=== PATIENT | male | born 1990 | race Two or more races ===

== ENCOUNTER 2017-09-21 11:31 | Inpatient (IN) | payer MEDICAID ==
[~2017-09-21] VITALS: Ht 177.8 cm; Wt 68.0 kg
--- NOTE | 2017-09-21 11:56 | Emergency Room Report ---
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 He reports he feels better after vomiting. He never had abdominal pain, but he does report in the last few weeks she's had intermittent epigastric pain and noticed some dark, tarry stools. He denies any recent dark tarry stools use reports he's noticed some in the last few weeks. His last 2 bowel movements were dark and tarry, and he reports never had right red blood per rectum. He reports he's got no medical problems, is not on any medications , never any major surgeries, and does not use any drugs or heavy alcohol. Allergies: Coded Allergies: No Known Allergies (Unverified , 09/21/17) Patient History Past Medical History: see triage record Reviewed Nursing Documentation: PMH: Agreed; PSxH: Agreed Nursing Documentation-PMH Past Medical History: No Stated History Review of Systems All Other Systems: negative except mentioned in HPI Physical Exam Vital Signs Date Time Temp Pulse Resp B/P (MAP) Pulse Ox O2 Delivery O2 Flow Rate FiO2 09/21/17 11:25 119 16 94/58 100 Room Air Sp02 EP Interpretation: reviewed, normal General Appearance: no apparent distress, alert, non-toxic Head: normocephalic Eyes: bilateral eye normal inspection, bilateral eye PERRL, bilateral eye EOMI ENT: normal ENT inspection, hearing grossly normal, normal pharynx, no angioedema, normal voice, moist mucus membranes Neck: normal inspection, full range of motion, supple, supple/symm/no masses Respiratory: chest non-tender, lungs clear, normal breath sounds, chest symmetrical, palpation of chest normal Cardiovascular #1: normal peripheral pulses, regular rate, rhythm Cardiovascular #2: 2+ radial (R), 2+ radial (L), 2+ dorsalis pedis (R), 2+ dorsalis pedis (L) Gastrointestinal: normal inspection, non tender, soft, no mass, no guarding, no rebound Rectal: normal rectal tone, black stool, heme positive stool Genitourinary: normal inspection, no CVA tenderness Musculoskeletal: back normal, gait/station normal, normal range of motion, non- tender, no calf tenderness Neurologic: alert, responsive, administrative office manager III-XII nml as tested, motor strength/tone normal, sensory intact, speech normal Psychiatric: judgement/insight normal, memory normal, mood/affect normal, no suicidal/homicidal ideation Skin: normal color, no rash, warm/dry, normal turgor Lymphatic: no adenopathy Medical Decision Making Diagnostic Impression: Primary Impression: Vomiting Additional Impression: GI bleed ER Course Patient is currently stable, but do suspect ulcer, labs with slight anemia, will give IV PPI bolus and drip, and admit for upper GI bleed Chest X-Ray Diagnostic Results Chest X-Ray Diagnostic Results : Chest X-Ray Ordered: Yes # of Views/Limited/Complete: 1 View Indication: Other EP Interpretation: Yes Interpretation: no consolidation, no effusion, no pneumothorax, no acute cardiopulmonary disease, other - no free air Impression: No acute disease Electronically Signed by: Omar Odonnell MD Last Vital Signs Date Time Temp Pulse Resp B/P (MAP) Pulse Ox O2 Delivery O2 Flow Rate FiO2 09/21/17 11:25 119 16 94/58 100 Room Air Disposition: ADMITTED INPATIENT Condition: Stable Scripts No Active Prescriptions or Reported Meds Referrals: NOT CHOSEN IPA/,REFERRING (PCP) OMAR ODONNELL M.D Sep 21, 2017 11:56
[2017-09-21 12:07] VITALS: BP 121/83
[2017-09-21 12:30] LABS: ANION GAP 4 mmol/L (5-15); BLOOD UREA NITROGEN 43 mg/dL (7-18); CALCIUM 8.3 MG/DL (8.5-10.1); CARBON DIOXIDE 28 MMOL/L (21-32); CHLORIDE 107 MMOL/L (98-107); CREATININE 0.9 MG/DL (0.55-1.30); POTASSIUM 4.1 MMOL/L (3.5-5.1); SODIUM 139 MMOL/L (136-145)
[2017-09-21 12:37] LABS: ALANINE AMINOTRANSFERASE 21 U/L (12-78); ALBUMIN 3.3 G/DL (3.4-5.0); ALBUMIN/GLOBULIN RATIO 1.2 (1.0-2.7); ALKALINE PHOSPHATASE 39 U/L (46-116); ASPARTATE AMINO TRANSFERASE 14 U/L (15-37); BILIRUBIN,TOTAL 0.4 MG/DL (0.2-1.0)
[2017-09-21 12:41] LABS: BASOPHILS % (AUTO) 0.6 % (0.0-2.0); EOSINOPHILS % (AUTO) 0.8 % (0.0-3.0); HEMATOCRIT 33.8 % (42.0-52.0); LYMPHOCYTES % (AUTO) 17.2 % (20.0-45.0); MEAN CORPUSCULAR VOLUME 89 FL (80-99); MONOCYTES % (AUTO) 5.2 % (1.0-10.0); NEUTROPHILS % (AUTO) 76.3 % (45.0-75.0); PLATELET COUNT 130 K/UL (150-450); RED BLOOD COUNT 3.81 M/UL (4.70-6.10); WHITE BLOOD COUNT 7.3 K/UL (4.8-10.8)
[2017-09-21 12:42] LABS: BILIRUBIN, URINE NEGATIVE (NEGATIVE); COLOR,URINE PALE YELLOW; GLUCOSE, URINE (UA) NEGATIVE (NEGATIVE); KETONES,URINE NEGATIVE (NEGATIVE); LEUKOCYTE ESTERASE ,URINE 1+ (NEGATIVE); NITRITE,URINE NEGATIVE (NEGATIVE); PH,URINE 7 (4.5-8.0); PROTEIN,URINE 2+ (NEGATIVE); UROBILINOGEN,URINE NORMAL MG/DL (0.0-1.0)
[2017-09-21 12:45] LABS: APPEARANCE,URINE SLIGHTLY CLOUDY
[2017-09-21] MEDS ORDERED: Pantoprazole 80 MG in NS 250 ML IV ONE (13:27)
[2017-09-21] MEDS ORDERED: Pantoprazole Inj IV SCH (13:30)
[2017-09-21 13:32] LABS: INR 1.1 (0.9-1.1)
[2017-09-21 14:14] VITALS: BP 105/60
--- NOTE | 2017-09-21 15:59 | Diagnostic Imaging Report ---
Indication: Cough Technique: One view of the chest Comparison: none Findings: Lungs and pleural spaces are clear. Heart size is normal Impression: No acute process
[2017-09-21 16:00] VITALS: BP 98/56
[2017-09-21] MEDS ORDERED: Morphine Sulfate 10mg/ml Inj IVP PRN (16:30)
[2017-09-21] MEDS: D5 1/2NS 1,000 ML IV SCH (17:48)
[2017-09-21 18:32] LABS: BASOPHILS % (AUTO) 0.4 % (0.0-2.0); EOSINOPHILS % (AUTO) 0.2 % (0.0-3.0); HEMATOCRIT 32.7 % (42.0-52.0); LYMPHOCYTES % (AUTO) 19.1 % (20.0-45.0); MEAN CORPUSCULAR VOLUME 89 FL (80-99); MONOCYTES % (AUTO) 3.8 % (1.0-10.0); NEUTROPHILS % (AUTO) 76.5 % (45.0-75.0); PLATELET COUNT 129 K/UL (150-450); RED BLOOD COUNT 3.69 M/UL (4.70-6.10); RED CELL DISTRIBUTION WIDTH 12.2 % (11.6-14.8); WHITE BLOOD COUNT 9.4 K/UL (4.8-10.8)
[2017-09-21] MEDS: Pantoprazole 80 MG in NS 250 ML IV SCH (18:33)
[2017-09-21 20:00] VITALS: BP 92/49
--- NOTE | 2017-09-21 21:41 | History and Physical ---
History of Present Illness General Date patient seen: Sep 21, 2017 Reason for Hospitalization: Vomiting Present Illness HPI This is a 27 y/o male with no significant past medical history presented to the ER with NBNB emesis, dark tarry stools and dizziness since this AM. He denies any history of stomach ulcer, GERD, or any recent abdominal pain. Reports occasional social drinking but denies drinking within the last several days. Denies use of NSAIDs or any pain medications. In the ER, patient's Hgb was noted to be 11 and patient was given IVF and protonix gtt. Denies chest pain, sob, abdominal pain, f/c, d/c. Allergies: Coded Allergies: No Known Allergies (Unverified , 09/21/17) Medication History No Active Prescriptions or Reported Meds Patient History Healthcare decision maker Resuscitation status Full Code Advanced Directive on File Review of Systems All Other Systems: negative except mentioned in HPI Physical Exam General Appearance: no apparent distress, alert HEENT: normocephalic, atraumatic Neck: non-tender, normal alignment Respiratory/Chest: chest wall non-tender, lungs clear, normal breath sounds Cardiovascular/Chest: normal peripheral pulses, normal rate, regular rhythm Abdomen: normal bowel sounds, non tender, soft Extremities: normal range of motion, non-tender Skin Exam: normal pigmentation, warm/dry Neurologic: director mobile II-XII grossly normal, no motor/sensory deficits, alert, oriented x 3 Last 24 Hour Vital Signs Date Time Temp Pulse Resp B/P (MAP) Pulse Ox O2 Delivery O2 Flow Rate FiO2 09/21/17 16:00 98.2 91 18 98/56 (70) 100 98.2 09/21/17 15:53 Room Air 09/21/17 15:49 80 09/21/17 15:30 98.6 83 18 105/60 100 Room Air 98.6 09/21/17 14:14 98.6 83 18 105/60 100 Room Air 98.6 09/21/17 12:07 98.5 81 15 121/83 100 Room Air 98.5 09/21/17 11:25 119 16 94/58 100 Room Air Laboratory Tests Test 09/21/17 12:00 09/21/17 13:10 09/21/17 17:00 White Blood Count 7.3 K/UL (4.8-10.8) 9.4 K/UL (4.8-10.8) Red Blood Count 3.81 M/UL (4.70-6.10) L 3.69 M/UL (4.70-6.10) L Hemoglobin 11.0 G/DL (14.2-18.0) L 11.0 G/DL (14.2-18.0) L Hematocrit 33.8 % (42.0-52.0) L 32.7 % (42.0-52.0) L Mean Corpuscular Volume 89 FL (80-99) 89 FL (80-99) Mean Corpuscular Hemoglobin 28.9 PG (27.0-31.0) 29.9 PG (27.0-31.0) Mean Corpuscular Hemoglobin Concent 32.5 G/DL (32.0-36.0) 33.7 G/DL (32.0-36.0) Red Cell Distribution Width 12.0 % (11.6-14.8) 12.2 % (11.6-14.8) Platelet Count 130 K/UL (150-450) L 129 K/UL (150-450) L Mean Platelet Volume 10.6 FL (6.5-10.1) H 9.6 FL (6.5-10.1) Neutrophils (%) (Auto) 76.3 % (45.0-75.0) H 76.5 % (45.0-75.0) H Lymphocytes (%) (Auto) 17.2 % (20.0-45.0) L 19.1 % (20.0-45.0) L Monocytes (%) (Auto) 5.2 % (1.0-10.0) 3.8 % (1.0-10.0) Eosinophils (%) (Auto) 0.8 % (0.0-3.0) 0.2 % (0.0-3.0) Basophils (%) (Auto) 0.6 % (0.0-2.0) 0.4 % (0.0-2.0) Urine Color Pale yellow Urine Appearance Slightly cloudy Urine pH 7 (4.5-8.0) Urine Specific [place] 1.010 (1.005-1.035) Urine Protein 2+ (NEGATIVE) H Urine Glucose (UA) Negative (NEGATIVE) Urine Ketones Negative (NEGATIVE) Urine Occult Blood Negative (NEGATIVE) Urine Nitrite Negative (NEGATIVE) Urine Bilirubin Negative (NEGATIVE) Urine Urobilinogen Normal MG/DL (0.0-1.0) Urine Leukocyte Esterase 1+ (NEGATIVE) H Urine RBC 0-2 /HPF (0 - 0) H Urine WBC 0-2 /HPF (0 - 0) Urine Squamous Epithelial Cells Occasional /LPF Urine Bacteria Few /HPF (NONE) Urine Hyaline Casts 0-2 /LPF (NONE) H Sodium Level 139 MMOL/L (136-145) Potassium Level 4.1 MMOL/L (3.5-5.1) Chloride Level 107 MMOL/L (98-107) Carbon Dioxide Level 28 MMOL/L (21-32) Anion Gap 4 mmol/L (5-15) L Blood Urea Nitrogen 43 mg/dL (7-18) H Creatinine 0.9 MG/DL (0.55-1.30) Estimat Glomerular Filtration Rate > 60 mL/min (>60) Glucose Level 103 MG/DL (74-106) Calcium Level 8.3 MG/DL (8.5-10.1) L Total Bilirubin 0.4 MG/DL (0.2-1.0) Aspartate Amino Transf (AST/SGOT) 14 U/L (15-37) L Alanine Aminotransferase (ALT/SGPT) 21 U/L (12-78) Alkaline Phosphatase 39 U/L (46-116) L Total Protein 6.0 G/DL (6.4-8.2) L Albumin 3.3 G/DL (3.4-5.0) L Globulin 2.7 g/dL Albumin/Globulin Ratio 1.2 (1.0-2.7) Lipase 75 U/L (73-393) Prothrombin Time 11.6 SEC (9.30-11.50) H Prothromb Time International Ratio 1.1 (0.9-1.1) Activated Partial Thromboplast Time 20 SEC (23-33) L Height (Feet): 5 Height (Inches): 10.00 Weight (Pounds): 150 Medications Current Medications Medications (Trade) Dose Ordered Sig/Daniel Route PRN Reason Start Time Stop Time Status Last Admin Dose Admin Dextrose/Sodium Chloride 1,000 ml @ 125 mls/hr Q8H IV 09/21/17 16:30 10/21/17 16:29 09/21/17 17:48 Morphine Sulfate (Morphine Sulfate) 0.5 mg Q6H PRN IVP For Pain 09/21/17 16:30 09/28/17 16:29 Ondansetron HCl (Zofran) 4 mg Q4H PRN IVP Nausea & Vomiting 09/21/17 19:15 10/21/17 19:14 Pantoprazole 80 mg/Sodium Chloride 250 ml @ 25 mls/hr Q10H IV 09/21/17 18:00 10/21/17 17:59 09/21/17 18:33 Assessment/Plan Problem List: (1) Vomiting ICD Codes: R11.10 - Vomiting, unspecified SNOMED: 086942449 (2) GI bleed ICD Codes: K92.2 - Gastrointestinal hemorrhage, unspecified SNOMED: 41251610 Status: stable, progressing Assessment/Plan - Admit to inpatient - GI consulted, Dr. Huang for EgD/colonoscopy - IV protonix gtt - NPO - IVF - Monitor CBC q12hr - Stool OB - Avoid NSAIDs - antiemetics - pain control and supportive care DVT Prophylaxis: SCD Code Status: Full Hospital Classification Declaration: Based on this initial evaluation, and depending on the patient's clinical course, I anticipate that this patient will require hospitalization for 2-3 days for GI bleed and close respiratory/ hemodynamic monitoring. Disposition: Once the patient is stable to leave the hospital, I anticipate the patient will likely be discharged to the following environment: home I spent 72 minutes on this patient's case, and 56 minutes were dedicated to counseling and/or care coordination. Discussed with patient/family, nursing staff, SW/CM, regarding clinical status, treatment course, and disposition planning. Time of note may not reflect time of encounter. Arely Balderas NP Sep 21, 2017 21:41
[2017-09-22] VITALS (10 sets, daily range): BP systolic 92–128; BP diastolic 43–66
[2017-09-22] MEDS: D5 1/2NS 1,000 ML IV SCH ×3 (00:10→16:30)
[2017-09-22] MEDS: Pantoprazole 80 MG in NS 250 ML IV SCH ×2 (03:29→14:30)
[2017-09-22 06:20] LABS: ALANINE AMINOTRANSFERASE 19 U/L (12-78); ALBUMIN 3.3 G/DL (3.4-5.0); ALBUMIN/GLOBULIN RATIO 1.2 (1.0-2.7); ALKALINE PHOSPHATASE 39 U/L (46-116); ANION GAP 5 mmol/L (5-15); ASPARTATE AMINO TRANSFERASE 16 U/L (15-37); BILIRUBIN,TOTAL 0.6 MG/DL (0.2-1.0); BLOOD UREA NITROGEN 25 mg/dL (7-18); CALCIUM 8.8 MG/DL (8.5-10.1); CARBON DIOXIDE 28 MMOL/L (21-32); CHLORIDE 106 MMOL/L (98-107); POTASSIUM 4.3 MMOL/L (3.5-5.1); SODIUM 139 MMOL/L (136-145)
[2017-09-22] MEDS ORDERED: Propofol 200mg/20ml IV ONE (06:30)
[2017-09-22] MEDS ORDERED: Lidocaine 1% MPF 10mg/ml 5ml ONE (06:30)
[2017-09-22 06:38] LABS: BASOPHILS % (AUTO) 0.7 % (0.0-2.0); EOSINOPHILS % (AUTO) 1.5 % (0.0-3.0); HEMATOCRIT 31.5 % (42.0-52.0); HEMOGLOBIN 10.5 G/DL (14.2-18.0); LYMPHOCYTES % (AUTO) 27.1 % (20.0-45.0); MEAN CORPUSCULAR VOLUME 90 FL (80-99); MONOCYTES % (AUTO) 5.9 % (1.0-10.0); NEUTROPHILS % (AUTO) 64.8 % (45.0-75.0); PLATELET COUNT 133 K/UL (150-450); RED BLOOD COUNT 3.52 M/UL (4.70-6.10); RED CELL DISTRIBUTION WIDTH 12.1 % (11.6-14.8); WHITE BLOOD COUNT 6.8 K/UL (4.8-10.8)
[2017-09-22] MEDS ORDERED: NS 500ML IVPB ONE (06:55)
--- NOTE | 2017-09-22 06:59 | Anethesia Preoperative Eval ---
Anesthesia Pre-op PMH/ROS General Date of Evaluation: Sep 22, 2017 Time of Evaluation: 06:35 Anesthesiologist: suraj ASA Score: ASA 1 Mallampati Score Class I : Soft palate, uvula, fauces, pillars visible Class II: Soft palate, uvula, fauces visible Class III: Soft palate, base of uvula visible Class IV: Only hard plate visible Mallampati Classification: Class II Surgeon: filipe Diagnosis: gi bleed Surgical Procedure: egd Anesthesia History: none Social History: smoking - nonsmoking Family History: no anesthesia problems Allergies: Coded Allergies: No Known Allergies (Unverified , 09/21/17) Medications: see eMAR Anesthesia Pre-op Phys. Exam Physician Exam Last Vital Signs Date Time Temp Pulse Resp B/P (MAP) Pulse Ox O2 Delivery O2 Flow Rate FiO2 09/22/17 04:00 98.1 80 20 128/66 (86) 97 98.1 09/21/17 21:00 Room Air Constitutional: NAD Neurologic: CN 2-12 intact Cardiovascular: RRR Respiratory: CTA Gastrointestinal: S/NT/ND, other - tongue piecing w/ studs Airway Exam Mallampati Score: Class II MO: full Neck: supple TMD: 2fb ROM: full Teeth: intact Anesthesia Pre-op A/P Labs Hematology Test 09/21/17 12:00 09/21/17 17:00 09/22/17 05:05 White Blood Count 7.3 K/UL (4.8-10.8) 9.4 K/UL (4.8-10.8) 6.8 K/UL (4.8-10.8) Red Blood Count 3.81 M/UL (4.70-6.10) L 3.69 M/UL (4.70-6.10) L 3.52 M/UL (4.70-6.10) L Hemoglobin 11.0 G/DL (14.2-18.0) L 11.0 G/DL (14.2-18.0) L 10.5 G/DL (14.2-18.0) L Hematocrit 33.8 % (42.0-52.0) L 32.7 % (42.0-52.0) L 31.5 % (42.0-52.0) L Mean Corpuscular Volume 89 FL (80-99) 89 FL (80-99) 90 FL (80-99) Mean Corpuscular Hemoglobin 28.9 PG (27.0-31.0) 29.9 PG (27.0-31.0) 29.9 PG (27.0-31.0) Mean Corpuscular Hemoglobin Concent 32.5 G/DL (32.0-36.0) 33.7 G/DL (32.0-36.0) 33.3 G/DL (32.0-36.0) Red Cell Distribution Width 12.0 % (11.6-14.8) 12.2 % (11.6-14.8) 12.1 % (11.6-14.8) Platelet Count 130 K/UL (150-450) L 129 K/UL (150-450) L 133 K/UL (150-450) L Mean Platelet Volume 10.6 FL (6.5-10.1) H 9.6 FL (6.5-10.1) 10.7 FL (6.5-10.1) H Neutrophils (%) (Auto) 76.3 % (45.0-75.0) H 76.5 % (45.0-75.0) H 64.8 % (45.0-75.0) Lymphocytes (%) (Auto) 17.2 % (20.0-45.0) L 19.1 % (20.0-45.0) L 27.1 % (20.0-45.0) Monocytes (%) (Auto) 5.2 % (1.0-10.0) 3.8 % (1.0-10.0) 5.9 % (1.0-10.0) Eosinophils (%) (Auto) 0.8 % (0.0-3.0) 0.2 % (0.0-3.0) 1.5 % (0.0-3.0) Basophils (%) (Auto) 0.6 % (0.0-2.0) 0.4 % (0.0-2.0) 0.7 % (0.0-2.0) Coagulation Test 09/21/17 13:10 09/22/17 05:05 Prothrombin Time 11.6 SEC (9.30-11.50) H Pending Prothromb Time International Ratio 1.1 (0.9-1.1) Pending Activated Partial Thromboplast Time 20 SEC (23-33) L Pending Chemistry Test 09/21/17 12:00 09/22/17 05:05 Sodium Level 139 MMOL/L (136-145) 139 MMOL/L (136-145) Potassium Level 4.1 MMOL/L (3.5-5.1) 4.3 MMOL/L (3.5-5.1) Chloride Level 107 MMOL/L (98-107) 106 MMOL/L (98-107) Carbon Dioxide Level 28 MMOL/L (21-32) 28 MMOL/L (21-32) Anion Gap 4 mmol/L (5-15) L 5 mmol/L (5-15) Blood Urea Nitrogen 43 mg/dL (7-18) H 25 mg/dL (7-18) H Creatinine 0.9 MG/DL (0.55-1.30) 1.0 MG/DL (0.55-1.30) Estimat Glomerular Filtration Rate > 60 mL/min (>60) > 60 mL/min (>60) Glucose Level 103 MG/DL (74-106) 92 MG/DL (74-106) Calcium Level 8.3 MG/DL (8.5-10.1) L 8.8 MG/DL (8.5-10.1) Total Bilirubin 0.4 MG/DL (0.2-1.0) 0.6 MG/DL (0.2-1.0) Aspartate Amino Transf (AST/SGOT) 14 U/L (15-37) L 16 U/L (15-37) Alanine Aminotransferase (ALT/SGPT) 21 U/L (12-78) 19 U/L (12-78) Alkaline Phosphatase 39 U/L (46-116) L 39 U/L (46-116) L Total Protein 6.0 G/DL (6.4-8.2) L 6.1 G/DL (6.4-8.2) L Albumin 3.3 G/DL (3.4-5.0) L 3.3 G/DL (3.4-5.0) L Globulin 2.7 g/dL 2.8 g/dL Albumin/Globulin Ratio 1.2 (1.0-2.7) 1.2 (1.0-2.7) Lipase 75 U/L (73-393) Risk Assessment & Plan Assessment: asa1 Plan: mac Status Change Before Surgery: No Pre-Antibiotics Drug: Savanah Rice MD Sep 22, 2017 06:59
[2017-09-22] MEDS ORDERED: Midazolam 2mg/2ml Inj IVP PRN (07:00)
[2017-09-22] MEDS ORDERED: fentaNYL 100 mcg/2 mL IV PRN (07:00)
[2017-09-22] MEDS ORDERED: Labetalol 5mg/ml 20ml vial IV PRN (07:00)
[2017-09-22] MEDS ORDERED: Atropine Inj 1mg/10ml Syr IV PRN (07:00)
[2017-09-22] MEDS ORDERED: DiphenhydrAMINE 50mg/ml Inj IVP PRN (07:00)
--- NOTE | 2017-09-22 07:08 | Pre-Procedure Note/Attestation ---
Pre-Procedure Note/Attestation Complete Prior to Procedure Planned Procedure: not applicable Procedure Narrative: egd Indications for Procedure Pre-Operative Diagnosis: gib Attestation I attest that I discussed the nature of the procedure; its benefits; risks and complications; and alternatives (and the risks and benefits of such alternatives ), prior to the procedure, with the patient (or the patient's legal outside sales representative insurance). I attest that, if there was a reasonable possibility of needing a blood transfusion, the patient (or the patient's legal outside sales representative insurance) was given the [facility] standardized written summary, pursuant to the Rafael Srikanth Blood Safety Act ([place] Health and Safety Code # 1645, as amended). I attest that I re-evaluated the patient just prior to the surgery and that there has been no change in the patient's H&P, except as documented below: Patrice Huang MD Sep 22, 2017 07:08
[2017-09-22 07:25] LABS: INR 1.1 (0.9-1.1)
--- NOTE | 2017-09-22 07:38 | General Progress Note ---
Assessment/Plan Assessment/Plan Assessment - UGIB - Anemia Recommendations - EGD - PPI - follow labs POST PROCEDURE ADDENDUM EGD: - mild christal esophageal colonization - small shallow duodenal ulcer, no active bleeding - random biopsies of stomach sent for HP eval RECOMMENDATIONS: - regular diet - change PPI to PO - Rx 8 weeks - check and Rx HP if (+) on biopsies - HIV test added to am labs - d/c planning - june f/u with me or PMD as outpt re above Subjective Allergies: Coded Allergies: No Known Allergies (Unverified , 09/21/17) Subjective GI CONSULT DICTATED feels OK seen in GI lab Objective Last 24 Hour Vital Signs Date Time Temp Pulse Resp B/P (MAP) Pulse Ox O2 Delivery O2 Flow Rate FiO2 09/22/17 04:00 98.1 80 20 128/66 (86) 97 98.1 09/22/17 03:35 64 09/21/17 23:51 63 09/21/17 21:00 Room Air 09/21/17 20:00 97.5 74 20 92/49 (63) 98 97.5 09/21/17 19:21 83 09/21/17 16:00 98.2 91 18 98/56 (70) 100 98.2 09/21/17 15:53 Room Air 09/21/17 15:49 80 09/21/17 15:30 98.6 83 18 105/60 100 Room Air 98.6 09/21/17 14:14 98.6 83 18 105/60 100 Room Air 98.6 09/21/17 12:07 98.5 81 15 121/83 100 Room Air 98.5 09/21/17 11:25 119 16 94/58 100 Room Air Intake and Output 09/21/17 09/22/17 19:00 07:00 Intake Total 25 ml Balance 25 ml Intake IV Total 25 ml # Voids 1 # Bowel Movements 1 Laboratory Tests 09/21/17 12:00: White Blood Count 7.3, Red Blood Count 3.81L, Hemoglobin 11.0L, Hematocrit 33.8L , Mean Corpuscular Volume 89, Mean Corpuscular Hemoglobin 28.9, Mean Corpuscular Hemoglobin Concent 32.5, Red Cell Distribution Width 12.0, Platelet Count 130L, Mean Platelet Volume 10.6H, Neutrophils (%) (Auto) 76.3H, Lymphocytes (%) (Auto) 17.2L, Monocytes (%) (Auto) 5.2, Eosinophils (%) (Auto) 0.8, Basophils (%) (Auto) 0.6, Urine Color Pale yellow, Urine Appearance Slightly cloudy, Urine pH 7, Urine Specific [place] 1.010, Urine Protein 2+H, Urine Glucose (UA) Negative, Urine Ketones Negative, Urine Occult Blood Negative , Urine Nitrite Negative, Urine Bilirubin Negative, Urine Urobilinogen Normal, Urine Leukocyte Esterase 1+H, Urine RBC 0-2H, Urine WBC 0-2, Urine Squamous Epithelial Cells Occasional, Urine Bacteria Few, Urine Hyaline Casts 0-2H, Sodium Level 139, Potassium Level 4.1, Chloride Level 107, Carbon Dioxide Level 28, Anion Gap 4L, Blood Urea Nitrogen 43H, Creatinine 0.9, Estimat Glomerular Filtration Rate > 60, Glucose Level 103, Calcium Level 8.3L, Total Bilirubin 0.4 , Aspartate Amino Transf (AST/SGOT) 14L, Alanine Aminotransferase (ALT/SGPT) 21 , Alkaline Phosphatase 39L, Total Protein 6.0L, Albumin 3.3L, Globulin 2.7, Albumin/Globulin Ratio 1.2, Lipase 75 09/21/17 13:10: Prothrombin Time 11.6H, Prothromb Time International Ratio 1.1, Activated Partial Thromboplast Time 20L 09/21/17 17:00: White Blood Count 9.4, Red Blood Count 3.69L, Hemoglobin 11.0L, Hematocrit 32.7L , Mean Corpuscular Volume 89, Mean Corpuscular Hemoglobin 29.9, Mean Corpuscular Hemoglobin Concent 33.7, Red Cell Distribution Width 12.2, Platelet Count 129L, Mean Platelet Volume 9.6, Neutrophils (%) (Auto) 76.5H, Lymphocytes (%) (Auto) 19.1L, Monocytes (%) (Auto) 3.8, Eosinophils (%) (Auto) 0.2, Basophils (%) (Auto) 0.4 09/22/17 05:05: White Blood Count 6.8, Red Blood Count 3.52L, Hemoglobin 10.5L, Hematocrit 31.5L , Mean Corpuscular Volume 90, Mean Corpuscular Hemoglobin 29.9, Mean Corpuscular Hemoglobin Concent 33.3, Red Cell Distribution Width 12.1, Platelet Count 133L, Mean Platelet Volume 10.7H, Neutrophils (%) (Auto) 64.8, Lymphocytes (%) (Auto) 27.1, Monocytes (%) (Auto) 5.9, Eosinophils (%) (Auto) 1.5, Basophils (%) (Auto) 0.7, Sodium Level 139, Potassium Level 4.3, Chloride Level 106, Carbon Dioxide Level 28, Anion Gap 5, Blood Urea Nitrogen 25H, Creatinine 1.0, Estimat Glomerular Filtration Rate > 60, Glucose Level 92, Calcium Level 8.8, Total Bilirubin 0.6, Aspartate Amino Transf (AST/SGOT) 16, Alanine Aminotransferase (ALT/SGPT) 19, Alkaline Phosphatase 39L, Total Protein 6.1L, Albumin 3.3L, Globulin 2.8, Albumin/Globulin Ratio 1.2, Prothrombin Time 11.5, Prothromb Time International Ratio 1.1, Activated Partial Thromboplast Time 24 Height (Feet): 5 Height (Inches): 10.00 Weight (Pounds): 150 Objective NCAT supple CTA RRR soft no edema Patrice Huang MD Sep 22, 2017 07:38
--- NOTE | 2017-09-22 07:57 | Immediate Post-Op Evaluation ---
Immediate Post-Op Evalulation Immediate Post-Op Evalulation Procedure: egd w/bx Date of Evaluation: Sep 22, 2017 Time of Evaluation: 07:33 IV Fluids: 200ml 0.9ns Blood Products: none Estimated Blood Loss: negligible Blood Pressure Systolic: 100 Blood Pressure Diastolic: 65 Pulse Rate: 75 Respiratory Rate: 18 O2 Sat by Pulse Oximetry: 100 Temperature (Fahrenheit): 98.6 Pain Score (1-10): 0 Nausea: No Vomiting: No Complications none Patient Status: awake, reacts, patent Hydration Status: adequate Drug: Savanah Rice MD Sep 22, 2017 07:57
--- NOTE | 2017-09-22 09:26 | 48 Hour Post Anesthesia Eval ---
Post Anesthesia Evaluation Procedure: egd w/bx Date of Evaluation: Sep 22, 2017 Time of Evaluation: 07:35 Blood Pressure Systolic: 92 0: 60 Pulse Rate: 67 Respiratory Rate: 18 Temperature (Fahrenheit): 98.6 O2 Sat by Pulse Oximetry: 100 Airway: patent Nausea: No Vomiting: No Pain Intensity: 0 Hydration Status: adequate Cardiopulmonary Status: stable Mental Status/LOC: patient returned to baseline Post-Anesthesia Complications: none Follow-up care needed: N/A Savanah High MD Sep 22, 2017 09:26
--- NOTE | 2017-09-22 12:24 | Cardiology Report ---
APPROVED REPORT EKG Measurement Heart [id number] Normal sinus rhythm Rightward axis Borderline ECG
--- NOTE | 2017-09-22 21:50 | General Progress Note ---
Assessment/Plan Status: stable Status Narrative 27 yo man with UGIB s/p EGD Assessment/Plan -regular diet - change PPI to PO - Rx 8 weeks - check and Rx HP if (+) on biopsies - f/u HIV test given christal on EGD - d/c planning- for tomorrow - follow H/H for acute blood loss anemia secondary to GI bleed Subjective Date patient seen: Sep 22, 2017 Time patient seen: 12:02 ROS Limited/Unobtainable: No Constitutional: Reports: no symptoms HEENT: Reports: no symptoms Cardiovascular: Reports: no symptoms Respiratory: Reports: no symptoms Gastrointestinal/Abdominal: Reports: tarry stools Genitourinary: Reports: no symptoms Neurologic/Psychiatric: Reports: no symptoms Endocrine: Reports: no symptoms Hematologic/Lymphatic: Reports: no symptoms Allergies: Coded Allergies: No Known Allergies (Unverified , 09/21/17) Subjective Patient s/p EGD Feels well Notes hunger No abdominal pain Objective Last 24 Hour Vital Signs Date Time Temp Pulse Resp B/P (MAP) Pulse Ox O2 Delivery O2 Flow Rate FiO2 09/22/17 16:02 74 09/22/17 16:00 96.2 92 18 99/62 (74) 100 96.2 09/22/17 12:00 97.5 86 20 111/60 (77) 100 97.5 09/22/17 11:35 76 09/22/17 09:26 209.5 67 18 100 09/22/17 09:24 209.5 75 18 100 09/22/17 09:00 Room Air 09/22/17 08:00 97.3 68 18 127/62 (83) 99 97.3 09/22/17 07:46 98.2 70 20 98/57 100 Room Air 98.2 09/22/17 07:40 69 20 99/59 100 Room Air 09/22/17 07:30 67 17 92/60 100 Room Air 09/22/17 07:25 68 16 99/43 99 Room Air 09/22/17 07:21 98.6 75 18 100/65 100 Nasal Cannula 3 98.6 09/22/17 04:00 98.1 80 20 128/66 (86) 97 98.1 09/22/17 03:35 64 09/21/17 23:51 63 Intake and Output 09/21/17 09/22/17 19:00 07:00 Intake Total 25 ml Balance 25 ml IV Total 25 ml # Voids 1 # Bowel Movements 1 Laboratory Tests 09/22/17 05:05: White Blood Count 6.8, Red Blood Count 3.52L, Hemoglobin 10.5L, Hematocrit 31.5L , Mean Corpuscular Volume 90, Mean Corpuscular Hemoglobin 29.9, Mean Corpuscular Hemoglobin Concent 33.3, Red Cell Distribution Width 12.1, Platelet Count 133L, Mean Platelet Volume 10.7H, Neutrophils (%) (Auto) 64.8, Lymphocytes (%) (Auto) 27.1, Monocytes (%) (Auto) 5.9, Eosinophils (%) (Auto) 1.5, Basophils (%) (Auto) 0.7, Prothrombin Time 11.5, Prothromb Time International Ratio 1.1, Activated Partial Thromboplast Time 24, Sodium Level 139, Potassium Level 4.3, Chloride Level 106, Carbon Dioxide Level 28, Anion Gap 5, Blood Urea Nitrogen 25H, Creatinine 1.0, Estimat Glomerular Filtration Rate > 60, Glucose Level 92, Calcium Level 8.8, Total Bilirubin 0.6, Aspartate Amino Transf (AST/SGOT) 16, Alanine Aminotransferase (ALT/SGPT) 19, Alkaline Phosphatase 39L, Total Protein 6.1L, Albumin 3.3L, Globulin 2.8, Albumin/ Globulin Ratio 1.2, HIV (1&2) Antibody Rapid Negative Height (Feet): 5 Height (Inches): 10.00 Weight (Pounds): 150 General Appearance: WD/WN, no apparent distress EENT: PERRL/EOMI Neck: non-tender Cardiovascular: normal peripheral pulses Respiratory/Chest: chest wall non-tender, lungs clear Abdomen: normal bowel sounds, non tender, soft Pelvis: normal external exam Genitourinary/Rectal: heme positive stool Extremities: non-tender Neurologic: obiee obia solution architect II-XII grossly normal Skin: normal pigmentation Antony Saxena M.D. Sep 22, 2017 21:50
--- NOTE | 2017-09-22 22:50 | Endoscopy Procedure Note ---
Endoscopy Procedure Note General Indication for Procedure: gib Procedures Performed: EGD Operative Findings/Diagnosis: DU Specimen: yes Pt Tolerated Procedure Well: Yes Estimated Blood Loss: none Anesthesia Anesthesiologist: kamini sawyer Anesthesia: MAC Medications Medication Given: see anesthesia record Inserted Devices Implant(s) used?: No GI Core Measures 50 yrs or older w/o bx or poly: Not Applicable 10yrs. F/U not recommended: Not Applicable If not recommended, why?: Patrice Huang MD Sep 22, 2017 22:50
--- NOTE | 2017-09-22 22:51 | Brief Operative Note ---
Immediate Post Operative Note Operative Note Chief Complaint: gib Pre-op Diagnosis: gib Procedure: egd Post-op Diagnosis: du Surgeon: filipe Anesthesiologist: loki lockwood Anesthesia: MAC Specimen: yes Complications: none Condition: stable Fluids: recorded Estimated Blood Loss: none Drains: none Implant(s) used?: No Patrice Huang MD Sep 22, 2017 22:51
[2017-09-23] VITALS: BP 94/49
[2017-09-23] MEDS: Pantoprazole 80 MG in NS 250 ML IV SCH ×2 (00:04→10:31)
[2017-09-23] MEDS: D5 1/2NS 1,000 ML IV SCH ×2 (00:04→08:30)
[2017-09-23 04:00] VITALS: BP 92/53
[2017-09-23 07:20] LABS: BASOPHILS % (AUTO) 0.5 % (0.0-2.0); EOSINOPHILS % (AUTO) 4.2 % (0.0-3.0); HEMATOCRIT 26.4 % (42.0-52.0); HEMOGLOBIN 9.4 G/DL (14.2-18.0); LYMPHOCYTES % (AUTO) 27.3 % (20.0-45.0); MEAN CORPUSCULAR VOLUME 89 FL (80-99); MONOCYTES % (AUTO) 5.1 % (1.0-10.0); NEUTROPHILS % (AUTO) 62.9 % (45.0-75.0); PLATELET COUNT 122 K/UL (150-450); RED BLOOD COUNT 2.97 M/UL (4.70-6.10); RED CELL DISTRIBUTION WIDTH 12.3 % (11.6-14.8); WHITE BLOOD COUNT 4.5 K/UL (4.8-10.8)
[2017-09-23 08:00] VITALS: BP 101/54
[2017-09-23 12:00] VITALS: BP 102/71
[2017-09-23] MEDS ORDERED: Tubing IV Secondary IV ONE (15:33)
[2017-09-23] MEDS ORDERED: D5 1/2NS 1000ml IV ONE (15:33)
[2017-09-23] MEDS ORDERED: NS 275ml ONE (15:33)
--- NOTE | 2017-09-23 15:53 | General Progress Note ---
Assessment/Plan Assessment/Plan Assessment - UGIB - duodenal ulcer - Anemia - ? 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) Recommendations - PO diet - PPI 6-8 weeks - Nystatin x 7 days qid - d/c planning later today if H&H stable - outpatient f/u --> Rx HP if (+) Subjective Allergies: Coded Allergies: No Known Allergies (Unverified , 09/21/17) Subjective Feels OK tolerating PO no melena Objective Last 24 Hour Vital Signs Date Time Temp Pulse Resp B/P (MAP) Pulse Ox O2 Delivery O2 Flow Rate FiO2 09/23/17 12:00 97.9 81 18 102/71 (81) 100 97.9 09/23/17 09:00 Room Air 09/23/17 08:00 97.7 80 18 101/54 (70) 96 97.7 09/23/17 07:38 80 09/23/17 04:00 96.3 76 18 92/53 (66) 99 96.3 09/23/17 03:42 86 09/23/17 00:00 97.2 73 19 94/49 (64) 99 97.2 09/22/17 23:48 76 09/22/17 21:00 Room Air 09/22/17 20:00 96.8 83 20 98/58 (71) 98 96.8 09/22/17 19:03 103 09/22/17 16:02 74 09/22/17 16:00 96.2 92 18 99/62 (74) 100 96.2 Intake and Output 09/22/17 09/23/17 19:00 07:00 Intake Total 780 ml 1350 ml Output Total 0 ml Balance 780 ml 1350 ml Intake Oral 480 ml IV Total 300 ml 1350 ml Output Estimated Blood Loss 0 ml # Voids 5 Laboratory Tests 09/23/17 06:55: White Blood Count 4.5L, Red Blood Count 2.97L, Hemoglobin 9.4L, Hematocrit 26.4L , Mean Corpuscular Volume 89, Mean Corpuscular Hemoglobin 31.5H, Mean Corpuscular Hemoglobin Concent 35.6, Red Cell Distribution Width 12.3, Platelet Count 122L, Mean Platelet Volume 10.8H, Neutrophils (%) (Auto) 62.9, Lymphocytes (%) (Auto) 27.3, Monocytes (%) (Auto) 5.1, Eosinophils (%) (Auto) 4.2H, Basophils (%) (Auto) 0.5 Height (Feet): 5 Height (Inches): 10.00 Weight (Pounds): 150 Objective NCAT supple CTA RRR soft no edema Patrice Huang MD Sep 23, 2017 15:53
[2017-09-23 16:00] VITALS: BP 94/57
[2017-09-23 16:09] LABS: BASOPHILS % (AUTO) 0.8 % (0.0-2.0); EOSINOPHILS % (AUTO) 4.1 % (0.0-3.0); HEMATOCRIT 27.1 % (42.0-52.0); HEMOGLOBIN 9.7 G/DL (14.2-18.0); LYMPHOCYTES % (AUTO) 27.8 % (20.0-45.0); MEAN CORPUSCULAR VOLUME 88 FL (80-99); MONOCYTES % (AUTO) 6.4 % (1.0-10.0); NEUTROPHILS % (AUTO) 60.8 % (45.0-75.0); PLATELET COUNT 113 K/UL (150-450); RED BLOOD COUNT 3.08 M/UL (4.70-6.10); RED CELL DISTRIBUTION WIDTH 12.2 % (11.6-14.8); WHITE BLOOD COUNT 4.7 K/UL (4.8-10.8)
[2017-09-23] MEDS ORDERED: Nystatin Susp 500,000 units/5ml ORAL SCH (18:00)
--- NOTE | 2017-09-24 00:25 | Discharge Summary ---
Discharge Summary Hospital Course Date of Admission Sep 21, 2017 at 13:49 Date of Discharge Sep 23, 2017 at 17:41 Admitting Diagnosis GI bleeding HPI Wesley Ward is a 27 year old male who was admitted on Sep 21, 2017 at 13:49 for Gasto Intestinal Bleed Consultations Gastroenterology Procedures EGD with biopsies Hospital Course Patient was admitted for UGIB EGD performed showing christal Hemoglobin stable; patient was tolerating PO and without pain on day of discharge Discharge Medications Medication Profile: No Active Prescriptions or Reported Meds Discharge Condition Upon Discharge: improving Discharge Disposition Patient was discharged to Home () Antony Saxena M.D. Sep 24, 2017 00:25
--- NOTE | 2017-09-25 09:00 | Procedure Note ---
DATE OF PROCEDURE: 09/22/2017 PROCEDURE: Upper gastrointestinal endoscopy with biopsy. SURGEON: Patrice Huang M.D. ANESTHESIA: Please see the separate anesthesiologist notes for details. PRE-ENDOSCOPIC DIAGNOSIS: Upper gastrointestinal bleeding. POST-ENDOSCOPIC DIAGNOSIS: Duodenal ulcer. PROCEDURE IN DETAIL: The procedure, its risks, indications, alternatives, and possible complications were explained to the patient and an informed consent was obtained. The patient was then sedated in the left lateral decubitus position. A diagnostic upper endoscope was introduced through the oropharynx and advanced to the duodenum. The endoscope was then gradually withdrawn and the mucosa was examined carefully. Examination of the upper gastrointestinal mucosa revealed mild Judith esophageal colonization was seen and a 0.5 cm duodenal ulcer, which was wide-based and with no bleeding. Biopsies of the antrum was sent to pathology for review. The endoscope was removed and the patient was sent to recovery in good condition. COMPLICATIONS: None. RECOMMENDATIONS: 1. Follow up biopsy results. 2. Check and treat for Helicobacter pylori if positive. 3. Check HIV status since some Judith esophageal colonization was also seen. Patrice Huang M.D. DR: CLAIRE JOB#: [id number] CC:
== END 2017-09-23 17:41 | disposition home or self-care (01) | DRG 253 ==
LOC: EDBD 11:31 → EMR 11:52 → 2E 13:49 → EDBEDREQ 14:09
PROC: 0DD68ZX Extraction of Stomach, Via Natural or Artificial Opening Endoscopic, Diagnostic (ICD-10-PCS; principal; 2017-09-22 07:09)
DX: K92.2 Gastrointestinal hemorrhage, unspecified (principal); D64.9 Anemia, unspecified; K26.9 Duodenal ulcer, unspecified as acute or chronic, without hemorrhage or perforation
CPT/HCPCS: 36415; 71045; 80053; 81003; 83690; 85025; 85610; 85730; 86703; 86850; 86900; 86901; 93005; 94003; 94150; J2405